=== PATIENT | male | born 2000 | race Two or more races ===

== ENCOUNTER 2019-03-26 17:07 | Emergency (ER) | payer OTHER ==
[2019-03-26 17:30] VITALS: BP 128/75
--- NOTE | 2019-03-26 17:51 | UC ---
Hand/Wrist HPI - HPI Summary HPI Summary: 18-year-old male presents with complaints of 2 different injuries which he sustained while playing rugby yesterday. He complains of an area of tenderness and swelling behind his right ear where he was struck by the head of another player. States no loss of consciousness. Patient also complains of pain and swelling to his left hand. States he had his hand resting on another player's back when a third player brush forward and crushed his hand with their hand. Complains of pain to the dorsal, radial aspect of the hand at worsens with movement. He notes bruising and swelling to the back of the hand. Denies headache, visual disturbances, photophobia, ear discharge, tinnitus, dizziness, vertigo, neck pain, nausea, vomiting, numbness, or tingling. - History Of Current Complaint Chief Complaint: UCUpperExtremity Stated Complaint: HAND INJURY Time Seen by Provider: 03/26/19 17:49 Hx Obtained From: Patient Pain Intensity: 3 - Allergies/Home Medications Allergies/Adverse Reactions: Allergies Allergy/AdvReac Type Severity Reaction Status Date / Time No Known Allergies Allergy Verified 03/26/19 17:30 Home Medications: Home Medications NK [No Home Medications Reported] 03/26/19 [History Confirmed 03/26/19] PMH/Surg Hx/FS Hx/Imm Hx Previously Healthy: Yes - Denies significant PMH - Surgical History Surgical History: None - Family History Known Family History: Positive: Non-Contributory - Social History Occupation: Student Lives: Dormitory/Roommates Alcohol Use: Occasionally Substance Use Type: None Smoking Status (MU): Never Smoked Tobacco Review of Systems All Other Systems Reviewed And Are Negative: Yes Constitutional: Positive: Negative Skin: Positive: Bruising Eyes: Negative: Blurred Vision, Diplopia, Photophobia Respiratory: Positive: Negative Cardiovascular: Positive: Negative Gastrointestinal: Positive: Negative Genitourinary: Positive: Negative Motor: Negative: Weakness Neurovascular: Negative: Decreased Sensation Musculoskeletal: Positive: Other: - See HPI Neurological: Negative: Headache, Weakness, Paresthesia, Numbness Is Patient Immunocompromised?: No Physical Exam - Summary Physical Exam Summary: GENERAL APPEARANCE: Well developed, well nourished, alert and cooperative, and appears to be in no acute distress. HEAD: Normocephalic. Small hematoma noted over the right mastoid process. No gross deformity or crepitus noted. EYES: Conjunctiva clear. No drainage. PERRL, EOM intact. Vision is grossly intact. EARS: External auditory canals and tympanic membranes clear, hearing grossly intact. NOSE: No nasal discharge. NECK: Neck supple, non-tender. CARDIAC: Normal S1 and S2. No S3, S4 or murmurs. Rhythm is regular. There is no peripheral edema, cyanosis or pallor. Extremities are warm and well perfused. Capillary refill is less than 2 seconds. Peripheral pulses intact. LUNGS: Clear to auscultation without rales, rhonchi, wheezing or diminished breath sounds. ABDOMEN: Positive bowel sounds. Soft, nondistended, nontender. No guarding or rebound. No masses or hepatosplenomegally. MUSKULOSKELETAL: ROM intact to all extremities. No joint erythema or tenderness. Normal muscular development. Normal gait. EXTREMITIES: Tenderness over the proximal 2nd and 3rd metacarpal of the right hand with ecchymosis and moderate edema noted to the dorsal hand. Full ROM to wrist and all fingers. Circulation and sensation intact. SKIN: Skin normal color, texture and turgor with no lesions or eruptions. Triage Information Reviewed: Yes Vital Signs: Initial Vital Signs Temp 98.3 F 03/26/19 17:24 Pulse 72 03/26/19 17:24 Resp 16 03/26/19 17:24 BP 128/75 03/26/19 17:24 Pulse Ox 99 03/26/19 17:24 Vital Signs Reviewed: Yes Diagnostics - Radiology No standard instances Radiology Interpretation Completed By: Radiologist Summary of Radiographic Findings: Order Information: HAND - LEFT MINIMUM 3 VIEWS. INDICATION: Left hand injury. TECHNIQUE: 4 views of the left hand were obtained. FINDINGS: The soft tissues are unremarkable. The bone mineralization is within normal limits. There is a minimally distracted fracture at the radial base of the second metacarpal. Anatomic alignment is maintained. The joint spaces are preserved. IMPRESSION: MINIMALLY DISTRACTED FRACTURE AT THE RADIAL BASE OF THE SECOND METACARPAL. Hand/Wrist Course/Dx - Course Course Of Treatment: 18-year-old male presents with complaints of 2 different injuries which he sustained while playing rugby yesterday. He complains of an area of tenderness and swelling behind his right ear where he was struck by the head of another player. States no loss of consciousness. Patient also complains of pain and swelling to his left hand. States he had his hand resting on another player's back when a third player brush forward and crushed his hand with their hand. Complains of pain to the dorsal, radial aspect of the hand at worsens with movement. He notes bruising and swelling to the back of the hand. Denies headache, visual disturbances, photophobia, ear discharge, tinnitus, dizziness, vertigo, neck pain, nausea, vomiting, numbness, or tingling. Afebrile. Vital signs stable. On exam patient was noted to have a small hematoma noted over the right mastoid process. No gross deformity or crepitus noted. enderness over the proximal 2nd and 3rd metacarpal of the right hand with ecchymosis and moderate edema noted to the dorsal hand. Full ROM to wrist and all fingers. Circulation and sensation intact. Remainder of exam unremarkable. X-ray showed a minimally distracted fracture at the radial base of the second metacarpal. Results reviewed with the patient. He was placed in a volar short arm splint by myself using Ortho-Glass. Circulation and sensation were intact pre-and post- application. Recommending conservative treatment for a proximal metacarpal fracture including [id number] analgesics and RICE. He is to follow-up with orthopedic surgery in 3-5 days for further evaluation and treatment. Anticipatory guidance and warning symptoms were reviewed with the patient. Verbalizes understanding and agrees with plan of care. - Differential Dx/Diagnosis Differential Diagnosis/HQI/PQRI: Contusion, Dislocation, Fracture, Sprain, Strain Provider Diagnosis: Fracture of second metacarpal bone of left hand, Contusion of head Discharge ED - Sign-Out/Discharge Documenting (check all that apply): Patient Departure All imaging exams completed and their final reports reviewed: Yes - Discharge Plan Condition: Stable Disposition: HOME Patient Education Materials: Hand Fracture (ED), Contusion in Adults (ED), Splint Care (ED) Referrals: No Primary Care Phys,NOPCP [Primary Care Provider] - Additional Instructions: The x-ray performed in the clinic today showed evidence of a fracture at the radial base of the second metacarpal. Rest the hand as much as possible. Wear the splint that was applied in the clinic at all times. Do not get this wet. Apply ice to the affected area for 15-20 minutes at least 4 times a day to help with the pain and swelling. Elevate the hand to help reduce swelling. Take acetaminophen (Tylenol) or ibuprofen (Advil, Motrin) according to directions as needed for pain. Follow up with orthopedic surgery in 3-5 days if symptoms do not improve. Seek immediate medical attention if you have severe pain not managed with pain medication, develop numbness or tingling in the hand or fingers, or have any worsening of symptoms. - Billing Disposition and Condition Condition: STABLE Disposition: Home - Attestation Statements Provider Attestation: I was available for consult. This patient was seen by the LEONEL. The patient was not presented to, seen by, or examined by me. -Elias
== END 2019-03-26 18:43 | disposition home or self-care (01) ==
LOC: UCEAST 17:07
DX: S62.310A Displaced fracture of base of second metacarpal bone, right hand, initial encounter for closed fracture (principal); S00.83XA Contusion of other part of head, initial encounter; W51.XXXA Accidental striking against or bumped into by another person, initial encounter; Y93.63 Activity, rugby; Y92.9 Unspecified place or not applicable
CPT/HCPCS: 99201; G0463